=== PATIENT | female | born 2000 | race Two or more races ===

== ENCOUNTER 2021-06-07 22:15 | Emergency (ER) | payer OTHER, SELFPAY ==
--- NOTE | ~2021-06-07 | XR_ITS ---
EXAMINATION: XR ANKLE, LEFT CLINICAL INFORMATION: Fall down 2 steps COMPARISON: Left ankle radiographs 08/24/2018 TECHNIQUE: AP, lateral, and mortise views of the left ankle. FINDINGS: Aside from lateral soft tissue swelling, the bones and soft tissues are normal. No fracture. Alignment is anatomic. Joint spaces are maintained. No joint effusion. XR/XR ankle LT 2V IMPRESSION: Lateral soft tissue swelling without fracture.
[2021-06-07 22:42] VITALS: BP 143/88; PULSE 90; RESP 16; TEMP 37.3; O2SAT 97; BMI 29.2
[2021-06-08 00:04] VITALS: BP 138/88; PULSE 74; RESP 14; TEMP 36.6; O2SAT 98
--- NOTE | 2021-06-08 00:35 | ED.LOWEXIN ---
HPI - Extremity Injury (Lower) General Chief Complaint: Extremity Injury, Lower Stated Complaint: fall Time Seen by Provider: 06/08/21 00:34 Source: patient Mode of arrival: ambulatory Limitations: no limitations History of Present Illness HPI Narrative: 20-year-old female came in for evaluation of left ankle injury. Patient was going downstairs missed 2 steps of stairs and twisted his left ankle, fell down, no head injury, no neck injury. Complaining of left ankle pain and swelling. Related Data Allergies Allergy/AdvReac Type Severity Reaction Status Date / Time peanut Allergy Severe Difficulty Verified 06/08/21 00:12 Breathing Peanut Butter Allergy Severe Difficulty Verified 06/08/21 00:12 Breathing Review of Systems Review of Systems: All other systems are reviewed and are negative Constitutional: Reports as per HPI and Reports no additional constitutional complaints Eyes: Reports as per HPI and Reports no additional eye complaints Reports system reviewed and no additional complaints, except as documented Cardiovascular: Reports as per HPI and Reports no additional cardiovascular complaints Respiratory: Reports as per HPI and Reports no additional respiratory complaints Gastrointestinal: Reports as per HPI and Reports no additional gastrointestinal complaints Genitourinary: Reports no additional female genitourinary complaints Musculoskeletal: Reports no additional musculoskeletal complaints Skin/Breast: Reports system reviewed and no additional complaints, except as docu Psychiatric: Reports no additional psychiatric complaints Endocrine: Reports no additional endocrine complaints Hematologic/Lymphatic: Reports no additional hematologic/lymphatic complaints Allergic/Immunologic: Reports no additional allergic/immunologic complaints Reports system reviewed and no additional complaints, except as documented and Reports Abnormal speech present [facility] Past Medical History Medical History Asthma Social History Social History Advance Directives: No Advance Directives Information Provided: No Patient : No Physical Exam Vital Signs: Vital Signs: Last Vital Signs Temp 97.8 F 06/08/21 00:04 Pulse 74 06/08/21 00:04 Resp 14 06/08/21 00:04 BP 138/88 06/08/21 00:04 Pulse Ox 98 06/08/21 00:04 Body Mass Index 29.2 Vital signs have been reviewed as appeared to be correct. Blood pressure normal. Heart rate normal. Respiration rate normal. Temperature normal. Oxygen saturation normal. Appearance: Alert. Oriented X3. No acute distress. Head: Normal external exam. Normocephalic. Atraumatic. No Day signs noted. No raccoon eyes noted Eyes: PERRLA. EOMI. Conjunctiva and sclera normal. Eyelids normal. ENT: TM's Normal. Pharynx normal. Uvula midline. Moist mucous membranes. No trismus noted. No drooling noted. No muffled voice noted. Neck: Normal inspection. Neck supple. FROM. No adenopathy. Thyroid Normal. No meningeal signs. No neck mass noted. CVS: Normal heart rate and rhythm. Heart sound normal. No murmurs noted. Pulses normal throughout. Respiratory: No respiratory distress. Painless inspiration. Breath sounds normal. No wheezes/rales/rhonchi noted. Chest nontender. No accessory muscle usage noted or decreased air movement noted. Abdomen: Soft and nontender. Bowel sounds normal in all 4 quadrants. No distention noted. No organomegaly noted. No visible injury noted. Back: No CVA tenderness. Full range of motion noted. Skin: Skin warm and dry. Normal skin color. Normal skin turgor. No rashes/lesions/lacerations noted. Extremities: Left ankle exam: Swelling and edema over the lateral malleolus, no deformity, no step-off. Neuro: Oriented X 3. No motor deficit. No sensory deficit. Reflexes normal. Course Course Course Narrative: Left ankle contusion. Ice/Pedro wrap, elevation, NSAIDs. MDM - Extremity Injury (Lower) Imaging Data Left ankle x-ray: Radiologist's impression: Lateral soft tissue swelling without fracture. Discharge Plan Discharge Clinical Impression: Ankle sprain and strain Patient Disposition: Home, Self-Care Instructions: Foot Contusion (ED) Referrals: Soheila Garces MD [Primary Care Provider] - 2 days Stand Alone Forms: Work/School Release
[2021-06-08] MEDS: Ibuprofen 400 MG TABLET PO (00:48)
== END 2021-06-08 01:04 | disposition home or self-care (01) ==
PROVIDERS: Emergency Provider Emergency Medicine; PCP Pediatrics
DX: S93.402A Sprain of unspecified ligament of left ankle, initial encounter (principal); S96.912A Strain of unspecified muscle and tendon at ankle and foot level, left foot, initial encounter; W10.8XXA Fall (on) (from) other stairs and steps, initial encounter; Y93.89 Activity, other specified; Y92.018 Other place in single-family (private) house as the place of occurrence of the external cause; Y99.9 Unspecified external cause status
CPT/HCPCS: 73600; 99283; 99284

== ENCOUNTER 2021-08-03 15:22 | Emergency (ER) | payer OTHER, SELFPAY ==
[2021-08-03 15:36] VITALS: BP 114/73; PULSE 85; RESP 16; TEMP 36.6; O2SAT 90; BMI 28.2
--- NOTE | 2021-08-03 17:05 | ECG_ITS ---
Test Reason : HEADACHE Blood Pressure : / mmHG Vent. Rate : 067 BPM Atrial Rate : 067 BPM P-R Int : 140 ms QRS Dur : 098 ms QT Int : 390 ms P-R-T Axes : 042 055 059 degrees QTc Int : 412 ms Normal sinus rhythm with sinus arrhythmia Normal ECG No previous ECGs available Referred By: Taco Sutherland Electronically Signed By:NADIYA CLARKE
--- NOTE | 2021-08-03 17:07 | ED_ITS ---
HPI - General Adult General Chief complaint: Headache Stated complaint: headache Time Seen by Provider: 08/03/21 17:05 Source: patient Limitations: no limitations History of Present Illness HPI narrative: This is a 20-year-old female who complains of an intermittent headache for the last few days, with some associated episodes of feeling d ann marie/lightheaded. She denies any vertigo. She says her headache is resolved now. She also complains of her hair seems to be falling out more. She notes she did see her primary care physician about this but she did not have a good explanation. Patient denies feeling like she is cold all the time, though she says she has had this in the past. She notes she had been on Depakote x1 shot and was to have a 2nd injection around the end of April but stopped the Depakote and has resumed normal menstrual period. She wears of the hormonal change causing her symptoms. She denies any visual changes. She denies nausea or vomiting. She denies any chest pain, shortness of breath, abdominal pain. She denies any cough or sore throat. Related Data Allergies Allergy/AdvReac Type Severity Reaction Status Date / Time peanut Allergy Severe Difficulty Verified 06/08/21 00:12 Breathing Peanut Butter Allergy Severe Difficulty Verified 06/08/21 00:12 Breathing Review of Systems 2 Review of Systems: Yes all other systems are reviewed and are negative Constitutional: Constitutional: Denies fever(s) Eyes: Eyes: Reports no additional eye complaints ENT: Reports as per HPI Cardiovascular: Cardiovascular: Reports no additional cardiovascular complaints Respiratory: Respiratory: Reports no additional respiratory complaints Gastrointestinal: Gastrointestinal: Reports no additional gastrointestinal complaints Musculoskeletal: Musculoskeletal: Reports no additional musculoskeletal complaints Neurologic: Reports as per HPI and Denies Sensory deficit (Neuro) [facility] Past Medical History Medical History Asthma Social History Social History Advance Directives: No Advance Directives Information Provided: No Physical Exam Vital Signs: Vital Signs: Last Vital Signs Temp 97.3 F 08/03/21 17:39 Pulse 74 08/03/21 17:39 Resp 20 08/03/21 17:39 BP 129/86 08/03/21 17:39 Pulse Ox 98 08/03/21 17:39 Body Mass Index 28.2 Const: Other: Patient mildly anxious appearing General: cooperative, no acute distress and alert Orientation/consciousness: patient oriented x3 HENMT: Head: Yes normal to inspection Eyes: General: appearance normal, both eyes and all related structures Eyelids: Yes eyelids normal Conjunctivae: conjunctivae normal Pupils: Equal, round and reactive pupils present Neck: Neck: Yes normal visual inspection, Yes supple and No lymphadenopathy Thyroid: Thyroid normal Chest: Chest palpation & inspection: normal inspection of the chest Resp: Effort & Inspection: normal respiratory effort Auscultation: clear to auscultation bilaterally Cardio: Rate: regular rate Rhythm: regular rhythm Heart sounds: S1 normal heart sound present, S2 normal heart sound present, no gallops, no murmurs and no rubs GI: Palpation (GI): Soft to palpation, nontender and Other GI palpation findings present (Non-distended) Auscultation: normal bowel sounds Skin: General skin exam: no rashes or lesions noted Neuro: General: patient oriented x3, no focal motor deficits and CN's II-XI intact bilaterally Cranial nerves: Yes Equal, round and reactive pupils present Cognition (Neuro): normal cognition Motor exam (neuro): 5/5 motor strength present throughout Sensory Exam: No Sensory deficit (Neuro) Extrem: General: Yes normal to inspection and Yes no pedal edema Psych: Appearance: grossly normal Affect: normal affect Medical Decision Making MDM Narrative Medical decision making narrative: Patient with multiple complaints, appears mil dly anxious,, not ill appearing. Patient complained of headache and lightheaded, episodic. EKG normal. CBC normal with no evidence of anemia. Patient is not . Patient reported increased hair loss-TSH normal. Patient is safe for outpatient follow-up with PCP Lab Data Lab results reviewed: Yes I reviewed the patient's lab results. Result diagrams: 08/03/21 17:21 08/03/21 17:21 Labs: Lab Results 08/03/21 08/03/21 08/03/21 Range/Units 17:21 17:21 18:22 WBC 10.2 (4.8-10.8) X10*3/uL RBC 4.49 (4.20-5.50) X10*6/uL Hgb 12.6 (12.0-16.0) g/dl Hct 39.3 (37-47) % MCV 87.5 (80-98) fL MCH 28.1 (27.0-33.0) pg MCHC 32.1 (31.0-35.0) g/dl RDW 13.2 (11.0-16.0) % Plt Count 535 H (160-400) X10*3/uL MPV 8.3 L (9.4-12.3) fL Immature Gran % (Auto) 0.3 (0.0-0.4) % Neut % (Auto) 50.6 (45-73) % Lymph % (Auto) 35.7 (20-40) % [place] % (Auto) 6.9 (2-11) % Eos % (Auto) 5.9 H (0-4) % Baso % (Auto) 0.6 (0-2) % Lymph # (Auto) 3.6 (1.2-4.9) X10*3/uL [place] # (Auto) 0.7 (0.1-1.2) X10*3/uL Eos # (Auto) 0.6 H (0.0-0.4) X10*3/uL Baso # (Auto) 0.1 (0.0-0.2) X10*3/uL Abs Immat Gran (auto) 0.03 (0.00-0.03) X10*3/uL Absolute Neuts (auto) 5.2 (2.0-8.3) X10*3/uL Absolute Nucleated RBC 0.000 (0.0-0.012) X10*3/uL Nucleated RBC % (auto) 0.0 (0.0-0.2) /100WBC Sodium 138 (135-145) mmol/L Potassium 4.2 (3.3-5.1) mmol/L Chloride 106 (96-108) mmol/L Carbon Dioxide 26 (22-29) mmol/L Anion Gap 10 L (12-20) BUN 9 (9-16) mg/dL Creatinine 0.72 (0.5-1.4) mg/dL Estim Creat Clear Calc 96.5 Estimated GFR > 60 Random Glucose 91 (60-115) mg/dL Calcium 9.4 (8.4-10.2) mg/dL TSH 1.78 (0.32-4.0) uIU/mL Urine Test NEGATIVE (NEGATIVE) ECG Data Attestation: I personally reviewed and interpreted this ECG as follows: Interpretation: Sinus rhythm with a rate of 67. No ST elevation or depression. Normal QRS axis. No ectopy. Discharge Plan Discharge Clinical Impression: Headache, Dizziness Patient Disposition: Home, Self-Care Instructions: Dizziness (ED), General Headache (ED) Additional Instructions: Use Tylenol or ibuprofen for headache. Drink plenty of fluids. Take a multivitamin with iron. Follow up with her primary care physician as needed. Discharge Date/Time: 08/03/21 18:54
[2021-08-03 17:25] LABS: MANUAL DIFF FLAG NO
[2021-08-03 17:32] LABS: Basophils Absolute Auto 0.1 X10*3/uL (0.0-0.2); Basophils Percent Auto 0.6 % (0-2); Eosinophils Absolute Auto 0.6 X10*3/uL (0.0-0.4); Eosinophils Percent Auto 5.9 % (0-4); Hematocrit 39.3 % (37-47); Hemoglobin 12.6 g/dl (12.0-16.0); Imm Gran Abs Auto 0.03 X10*3/uL (0.00-0.03); Imm Gran Pct Auto 0.3 % (0.0-0.4); Lymphocytes Absolute Auto 3.6 X10*3/uL (1.2-4.9); Lymphocytes Percent Auto 35.7 % (20-40); Mean Corpuscular HGB Conc 32.1 g/dl (31.0-35.0); Mean Corpuscular Hemoglobin 28.1 pg (27.0-33.0); Mean Corpuscular Volume 87.5 fL (80-98); Mean Platelet Volume 8.3 fL (9.4-12.3); Monocytes Absolute Auto 0.7 X10*3/uL (0.1-1.2); Monocytes Percent Auto 6.9 % (2-11); Neutrophils Absolute Auto 5.2 X10*3/uL (2.0-8.3); Neutrophils Percent Auto 50.6 % (45-73); Platelet Count 535 X10*3/uL (160-400); Red Blood Count 4.49 X10*6/uL (4.20-5.50); Red Cell Distribution Width 13.2 % (11.0-16.0); White Blood Count 10.2 X10*3/uL (4.8-10.8)
[2021-08-03 17:39] VITALS: BP 129/86; PULSE 74; RESP 20; TEMP 36.3; O2SAT 98
[2021-08-03 17:51] LABS: Anion Gap 10 (12-20); Blood Urea Nitrogen 9 mg/dL (9-16); Calcium 9.4 mg/dL (8.4-10.2); Carbon Dioxide 26 mmol/L (22-29); Chloride 106 mmol/L (96-108); Creatinine Clr Calc Pharmacy 96.5; Estimated Glomerular Filt Rate > 60; Glucose Random 91 mg/dL (60-115); Potassium 4.2 mmol/L (3.3-5.1); Sodium 138 mmol/L (135-145)
[2021-08-03 18:14] LABS: TSH reflex Free T4 1.78 uIU/mL (0.32-4.0)
[2021-08-03 18:31] LABS: UPreg QC Valid YES; Urine Pregnancy NEGATIVE (NEGATIVE)
== END 2021-08-03 18:54 | disposition home or self-care (01) ==
PROVIDERS: Emergency Provider Emergency Medicine; PCP Pediatrics
DX: R51.9 Headache, unspecified (principal); R42 Dizziness and giddiness; Z79.899 Other long term (current) drug therapy
CPT/HCPCS: 36415; 80048; 81025; 84443; 85025; 93005; 99283; 99284

== ENCOUNTER 2021-11-17 08:46 | Outpatient (REF) | payer OTHER, SELFPAY ==
[2021-11-18 14:20] LABS: BV Int Neg Control Negative (Negative); BV Int Pos Control Positive (Positive)
[2021-11-18 14:24] LABS: CT PCR NOT DETECTED (Not Detect.); NG PCR NOT DETECTED (Not Detect.)
== END 2021-11-17 08:47 | disposition home or self-care (01) ==
LOC: HO.LAB 08:46
PROVIDERS: PCP Pediatrics; Visit Provider Advanced Practice Midwife
DX: Z30.09 Encounter for other general counseling and advice on contraception (principal); Z20.2 Contact with and (suspected) exposure to infections with a predominantly sexual mode of transmission
CPT/HCPCS: 87480; 87491; 87510; 87591; 87660

== ENCOUNTER 2021-11-22 14:46 | Outpatient (REF) | payer OTHER, SELFPAY ==
[2021-11-22 15:40] LABS: COVID-19 Test Negative (Negative); IDNOW Serial# 16C4AD1C
== END 2021-11-22 14:47 | disposition home or self-care (01) ==
LOC: HO.LAB 14:46
PROVIDERS: Visit Provider Internal Medicine
DX: Z20.822 Contact with and (suspected) exposure to COVID-19 (principal)
CPT/HCPCS: 87635; C9803

== ENCOUNTER 2021-12-09 11:31 | Outpatient (REF) | payer OTHER, SELFPAY ==
[2021-12-09 11:51] LABS: COVID-19 Test Negative (Negative)
== END 2021-12-09 11:32 | disposition home or self-care (01) ==
LOC: HO.LAB 11:31
PROVIDERS: Visit Provider Internal Medicine
DX: Z20.822 Contact with and (suspected) exposure to COVID-19 (principal)
CPT/HCPCS: 87635; C9803

== ENCOUNTER 2021-12-12 08:57 | Outpatient (REF) | payer OTHER, SELFPAY ==
[2021-12-13 07:40] LABS: COVID-19 Test Negative (Negative); IDNOW Serial# 16C4AD1C
== END 2021-12-12 08:58 | disposition home or self-care (01) ==
LOC: HO.LAB 08:57
PROVIDERS: Visit Provider Internal Medicine
DX: Z20.822 Contact with and (suspected) exposure to COVID-19 (principal)
CPT/HCPCS: 87635; C9803

== ENCOUNTER 2023-02-13 05:46 | Emergency (ER) | payer OTHER, SELFPAY ==
--- NOTE | ~2023-02-13 | US_ITS ---
EXAMINATION: US OBSTETRICAL ULTRASOUND CLINICAL INFORMATION: Pelvic pain and COMPARISON: None available.. LMP: 01/17/2023. Gestational age by maternal dates is 5 weeks 2 days. Estimated date of delivery by maternal dates is 10/14/2023. TECHNIQUE: Transabdominal and transvaginal first trimester OB ultrasound. Transvaginal exam was performed for better visualization of the gestational sac and ovaries. FINDINGS: There is an intrauterine gestational sac and yolk sac. Mean sac diameter measures 0.6 cm which would suggest gestational age of 5 weeks 1 day. No pole seen. There is a second small cyst in the endometrium measuring 3 x 3 x 2 mm. MATERNAL ADNEXA: The right maternal ovary measures 2.8 x 1 x 1.4 cm. The left maternal ovary measures 3.3 x 1.7 x 1.7 cm. 1.5 x 1.4 x 1.3 cm cyst. There is no significant maternal adnexal mass. No maternal pelvic ascites. US/US OB pelvic and transvaginal IMPRESSION: Intrauterine gestational sac and yolk sac. Mean sac diameter suggests gestational age of 5 weeks 1 day. Small adjacent endometrial cyst measuring 3 x 3 x 2 mm.
[2023-02-13 06:17] VITALS: BP 130/95; PULSE 89; RESP 18; TEMP 36.9; O2SAT 98; BMI 27.1
--- NOTE | 2023-02-13 06:32 | PC.NURSE ---
Pt A&Ox4, reports / intermittent all over ABD pain, states it feels like cramping. Reports LMP 01/07/2023, and took 4 home tests that were positive. Pt tearful, anxious with unsuccessful blood draw, states I had a bad experience with blood draws, I can't do this, I don't want to blood work drawn after multiple reassuring attempts continued to refuse.
--- NOTE | 2023-02-13 06:32 | MHC.EDTECH ---
pt refused blood draw due to she is scared from a previous draw
--- NOTE | 2023-02-13 07:25 | ED.ABDPAIN ---
HPI - Abdominal Pain General Chief Complaint: Abdominal Pain Stated Complaint: Abdominal Pain/ Possibly ? Time Seen by Provider: 02/13/23 07:24 Source: patient Mode of arrival: ambulatory Limitations: no limitations History of Present Illness HPI narrative: Patient took a Plan B on January 22, now with cramping, test was positive at home. LMP 3/5. No vaginal bleeding non discharge MD elicited complaint: abdominal pain Onset (ago): day(s) Pain Consistency: intermittent Location: RLQ, LLQ and suprapubic Severity: mild Quality: cramping Related Data Home Medications Medication Instructions Recorded Confirmed albuterol 90 mcg/actuation aerosol mcg inhalation 11/17/21 11/17/21 inhaler fluticasone 250 mcg-salmeterol 50 1 inh inhalation BID 11/17/21 11/17/21 mcg/dose blistr powdr for inhalation (Advair Diskus) Previous Rx's Medication Instructions Recorded levonorgestrel-ethinyl estradiol 1 tab PO DAILY #84 tabs 11/17/21 0.1 mg-20 mcg tablet Allergies Allergy/AdvReac Type Severity Reaction Status Date / Time peanut Allergy Severe Difficulty Verified 11/17/21 08:50 Breathing Peanut Butter Allergy Severe Difficulty Verified 11/17/21 08:50 Breathing Review of Systems Review of Systems Yes all other systems are reviewed and are negative Comments: abdominal cramping PMFSH Past Medical History Medical History Asthma Social History Social History Alcohol intake: current Alcohol intake frequency: holidays/special occasions only Patient Tobacco Use Status: Never used Tobacco Smoked in Last 30 Days: No Use of substances other than those prescribed or required for medical reasons: No Advance Directives: No Advance Directives Information Provided: No Gender identity: Female Physical Exam ED Vital Signs: Vital Signs - 24 hr 02/13/23 06:17 02/13/23 07:28 02/13/23 09:07 Temperature 98.5 F 97.9 F 98.3 F Pulse Rate 89 77 82 Respiratory Rate 18 20 14 Blood Pressure 130/95 H 129/82 124/73 Pulse Oximetry 98 99 96 Oxygen Delivery Method Room Air Room Air Room Air BMI result Body Mass Index 27.1 Const General: healthy appearing Nutritional Appearance: average body habitus Orientation/consciousness: oriented to person and patient oriented x3 Limitations: no limitations HENMT Head: Yes normal to inspection Ears: external ears normal General nose exam: Normal external nose present Mouth: Normal oral and palatal mucosa present and oropharynx normal Throat: Yes posterior oropharynx normal Eyes General: appearance normal, both eyes and all related structures Neck Neck: Yes normal visual inspection Chest Chest palpation & inspection: normal inspection of the chest Resp Auscultation: clear to auscultation bilaterally Cardio Jugular venous distension: no JVD Rate: regular rate Rhythm: regular rhythm Heart sounds: S1 normal heart sound present and S2 normal heart sound present GI Inspection: Yes normal to inspection Palpation (GI): Soft to palpation, nontender and No hepatosplenomegaly present Auscultation: normal bowel sounds General: Yes no CVA tenderness Back/Spine/Pelvis Back: no CVA tenderness Skin General skin exam: no rashes or lesions noted Neuro General: oriented to person and patient oriented x3 Cranial nerves: Yes CN's II-XII intact bilaterally Motor exam (neuro): 5/5 motor strength present throughout Extrem General: Yes normal to inspection Psych Appearance: grossly normal Course Reevaluation(s) Reevaluation #1: Patient with IUP and yolk sac [facility] Time: 10:51 Medical Decision Making Differential Diagnosis Differential Diagnoses: The differential diagnosis associated with the presentation includes (ectopic , incomplete , IUP) Consult Healthcare Provider Management of the patient was discussed with: Him Analyst (Dr. Glass flat sorter processor) Lab Data MDM Lab Attestation statement: I reviewed the patient's lab results. 02/13/23 07:27 02/13/23 07:27 Labs: Lab Results 02/13/23 02/13/23 02/13/23 Range/Units 07:27 07:27 08:12 WBC 9.1 (4.8-10.8) X10*3/uL RBC 4.89 (4.20-5.50) X10*6/uL Hgb 14.4 (12.0-16.0) g/dl Hct 42.4 (37.0-47.0) % MCV 86.7 (80.0-98.0) fL MCH 29.4 (27.0-33.0) pg MCHC 34.0 (31.0-35.0) g/dl RDW 13.0 (11.0-16.0) % Plt Count 466 H (160-400) X10*3/uL MPV 8.5 L (9.4-12.3) fL Immature Gran % (Auto) 0.2 (0.0-0.4) % Neut % (Auto) 51.7 (45-73) % Lymph % (Auto) 34.6 (20-40) % [place] % (Auto) 7.8 (2-11) % Eos % (Auto) 4.9 H (0-4) % Baso % (Auto) 0.8 (0-2) % Lymph # (Auto) 3.2 (1.2-4.9) X10*3/uL [place] # (Auto) 0.7 (0.1-1.2) X10*3/uL Eos # (Auto) 0.5 H (0.0-0.4) X10*3/uL Baso # (Auto) 0.1 (0.0-0.2) X10*3/uL Abs Immat Gran (auto) 0.02 (0.00-0.03) X10*3/uL Absolute Neuts (auto) 4.7 (2.0-8.3) x10*3/uL Absolute Nucleated RBC 0.000 (0.0-0.012) X10*3/uL Nucleated RBC % (auto) 0.0 (0.0-0.2) /100WBC Sodium 137 (135-145) mmol/L Potassium 3.3 D (3.3-5.1) mmol/L Chloride 107 (96-108) mmol/L Carbon Dioxide 20 L (22-29) mmol/L Anion Gap 13 (12-20) BUN 9 (9-16) mg/dL Creatinine 0.71 (0.5-1.4) mg/dL Estim Creat Clear Calc 94.4 Estimated GFR > 60 Random Glucose 78 (60-115) mg/dL Calcium 9.2 (8.4-10.2) mg/dL Total Bilirubin 0.9 (0.0-1.0) mg/dL AST 17 (5-31) U/L ALT 17 (0-31) U/L Alkaline Phosphatase 66 (39-117) U/L Total Protein 7.0 (6.5-8.0) g/dL Albumin 4.2 (3.5-5.0) g/dL Beta HCG, Quant 6558 mIU/mL Urine Color Yellow Urine Appearance Clear Urine pH 6.5 (5.0-9.0) Ur Specific [place] 1.015 (1.005-1.025) Urine Protein Negative (Neg-Trace) mg/dL Urine Glucose (UA) Negative (Negative) mg/dL Urine Ketones 15 (Negative) mg/dL Urine Blood Negative (Negative) Urine Nitrite Negative (Negative) Ur Leukocyte Esterase Negative (Negative) Urine Test (NEGATIVE) 02/13/23 Range/Units 08:12 WBC (4.8-10.8) X10*3/uL RBC (4.20-5.50) X10*6/uL Hgb (12.0-16.0) g/dl Hct (37.0-47.0) % MCV (80.0-98.0) fL MCH (27.0-33.0) pg MCHC (31.0-35.0) g/dl RDW (11.0-16.0) % Plt Count (160-400) X10*3/uL MPV (9.4-12.3) fL Immature Gran % (Auto) (0.0-0.4) % Neut % (Auto) (45-73) % Lymph % (Auto) (20-40) % [place] % (Auto) (2-11) % Eos % (Auto) (0-4) % Baso % (Auto) (0-2) % Lymph # (Auto) (1.2-4.9) X10*3/uL [place] # (Auto) (0.1-1.2) X10*3/uL Eos # (Auto) (0.0-0.4) X10*3/uL Baso # (Auto) (0.0-0.2) X10*3/uL Abs Immat Gran (auto) (0.00-0.03) X10*3/uL Absolute Neuts (auto) (2.0-8.3) x10*3/uL Absolute Nucleated RBC (0.0-0.012) X10*3/uL Nucleated RBC % (auto) (0.0-0.2) /100WBC Sodium (135-145) mmol/L Potassium (3.3-5.1) mmol/L Chloride (96-108) mmol/L Carbon Dioxide (22-29) mmol/L Anion Gap (12-20) BUN (9-16) mg/dL Creatinine (0.5-1.4) mg/dL Estim Creat Clear Calc Estimated GFR Random Glucose (60-115) mg/dL Calcium (8.4-10.2) mg/dL Total Bilirubin (0.0-1.0) mg/dL AST (5-31) U/L ALT (0-31) U/L Alkaline Phosphatase (39-117) U/L Total Protein (6.5-8.0) g/dL Albumin (3.5-5.0) g/dL Beta HCG, Quant mIU/mL Urine Color Urine Appearance Urine pH (5.0-9.0) Ur Specific [place] (1.005-1.025) Urine Protein (Neg-Trace) mg/dL Urine Glucose (UA) (Negative) mg/dL Urine Ketones (Negative) mg/dL Urine Blood (Negative) Urine Nitrite (Negative) Ur Leukocyte Esterase (Negative) Urine Test POSITIVE H (NEGATIVE) Independent Interpretation I performed an independent interpretation of an: Ultrasound (IUP) Radiology Impression Discussion of test interpretation with radiology: I have reviewed the radiologist's reading. Discharge Plan Discharge Clinical Impression: Intrauterine Patient Disposition: Home, Self-Care Instructions: (ED) Additional Inst[facility] Prescriptions: No Action fluticasone propion-salmeterol [Advair Diskus] 250-50 mcg/dose blister with device 1 inh inhalation BID albuterol 90 mcg/actuation aerosol inhalation levonorgestrel-ethinyl estrad 0.1-20 mg-mcg tablet 1 tab PO DAILY Qty: 84 3RF Referrals: Physician,Unknown J [Primary Care Provider] - 3 days ([facility])
[2023-02-13 07:28] VITALS: BP 129/82; PULSE 77; RESP 20; TEMP 36.6; O2SAT 99
[2023-02-13 07:30] LABS: MANUAL DIFF FLAG NO
[2023-02-13 07:35] LABS: Basophils Absolute Auto 0.1 X10*3/uL (0.0-0.2); Basophils Percent Auto 0.8 % (0-2); Eosinophils Absolute Auto 0.5 X10*3/uL (0.0-0.4); Eosinophils Percent Auto 4.9 % (0-4); Hematocrit 42.4 % (37.0-47.0); Hemoglobin 14.4 g/dl (12.0-16.0); Imm Gran Abs Auto 0.02 X10*3/uL (0.00-0.03); Imm Gran Pct Auto 0.2 % (0.0-0.4); Lymphocytes Absolute Auto 3.2 X10*3/uL (1.2-4.9); Lymphocytes Percent Auto 34.6 % (20-40); Mean Corpuscular Hemoglobin 29.4 pg (27.0-33.0); Mean Corpuscular Volume 86.7 fL (80.0-98.0); Mean Platelet Volume 8.5 fL (9.4-12.3); Monocytes Absolute Auto 0.7 X10*3/uL (0.1-1.2); Monocytes Percent Auto 7.8 % (2-11); Neutrophils Absolute Auto 4.7 x10*3/uL (2.0-8.3); Neutrophils Percent Auto 51.7 % (45-73); Platelet Count 466 X10*3/uL (160-400); Red Blood Count 4.89 X10*6/uL (4.20-5.50); White Blood Count 9.1 X10*3/uL (4.8-10.8)
[2023-02-13 07:55] LABS: Alanine Aminotransferase 17 U/L (0-31); Albumin Level 4.2 g/dL (3.5-5.0); Alkaline Phosphatase 66 U/L (39-117); Anion Gap 13 (12-20); Aspartate Amino Transferase 17 U/L (5-31); Bilirubin Total 0.9 mg/dL (0.0-1.0); Blood Urea Nitrogen 9 mg/dL (9-16); Calcium 9.2 mg/dL (8.4-10.2); Carbon Dioxide 20 mmol/L (22-29); Chloride 107 mmol/L (96-108); Creatinine Clr Calc Pharmacy 94.4; Estimated Glomerular Filt Rate > 60; Glucose Random 78 mg/dL (60-115); HCG Quantitative 6558 mIU/mL; Potassium 3.3 mmol/L (3.3-5.1); Sodium 137 mmol/L (135-145)
--- NOTE | 2023-02-13 08:19 | PC.NURSE ---
Pt found on stretcher, airway open and patent, no obvious signs of distress, no difficulty breathing. A&ox4, skin pink, warm, and dry. Pt lung sounds clr and equal bilaterally. Heart sounds normal. Bowel sounds present all diez, abdomen soft, pt denies tenderness upon palpation. No edema noted. Pt complaining of abdominal cramping throughout abdomen, rated 3/10 pain. Pt reports positive preg test at home x4. Pt reports taking plan B on 01/22/23.
[2023-02-13 08:23] LABS: Appearance Urine Clear; Color Urine Yellow; Glucose Urine UA Negative (Negative); Leukocyte Esterase Urine Negative (Negative); Nitrite Urine Negative (Negative); PH 6.5 (5.0-9.0); Specific Gravity - Urine 1.015 (1.005-1.025); Urine Blood Negative (Negative); Urine Ketones 15 mg/dL (Negative); Urine Protein Negative (Neg-Trace)
[2023-02-13 08:24] LABS: UPreg QC Valid YES; Urine Pregnancy POSITIVE (NEGATIVE)
[2023-02-13 09:07] VITALS: BP 124/73; PULSE 82; RESP 14; TEMP 36.8; O2SAT 96
--- NOTE | 2023-02-13 09:28 | PC.NURSE ---
pt of the [facility] for [facility]
--- NOTE | 2023-02-13 10:41 | P.CONOB_ITS ---
BRANCH CUSTOMER SERVICE REPRESENTATIVE - CN: HPI Data of Consult Consult date: 02/13/23 Primary Care Provider: Unknown Physician Consult Narrative Narrative: I was consulted on Iva Pearson who is a 22 year old female presenting to the emergency room complaining of pelvic cramping, the patient had a positive urine test done at home. Last menstrual cycles was and making her by today at 7 weeks and 1 day of gestation. The patient had unprotected intercourse, after which she took a Plan B on 01/22/2023;? No vaginal bleeding , or discharge, no associated other urinary or GI complaints. HCG= 6558 Pelvic ultrasound showed the following: There is an intrauterine gestational sac and yolk sac. Mean sac diameter measures 0.6 cm which would suggest gestational age of 5 weeks 1 day. No pole seen. There is a second small cyst in the endometrium measuring 3 x 3 x 2 mm. MATERNAL ADNEXA: ? ? The right maternal ovary measures 2.8 x 1 x 1.4 cm. The left maternal ovary measures 3.3 x 1.7 x 1.7 cm.? 1.5 x 1.4 x 1.3 cm cyst. There is no significant maternal adnexal mass.? No maternal pelvic ascites. cc:: CC: OB [facility] Past Medical History Medical History Asthma Social History Social History Alcohol intake: current Alcohol intake frequency: holidays/special occasions only Patient Tobacco Use Status: Never used Tobacco Smoked in Last 30 Days: No Use of substances other than those prescribed or required for medical reasons: No Advance Directives: No Advance Directives Information Provided: No Gender identity: Female Meds Allergies Allergy/AdvReac Type Severity Reaction Status Date / Time peanut Allergy Severe Difficulty Verified 11/17/21 08:50 Breathing Peanut Butter Allergy Severe Difficulty Verified 11/17/21 08:50 Breathing Home Medications Medication Instructions Recorded Confirmed Last Taken Type albuterol 90 mcg/actuation aerosol mcg inhalation 11/17/21 11/17/21 Unknown History inhaler fluticasone 250 mcg-salmeterol 50 1 inh inhalation BID 11/17/21 11/17/21 Unknown History mcg/dose blistr powdr for inhalation (Advair Diskus) BRANCH CUSTOMER SERVICE REPRESENTATIVE Physical Exam Vitals Vital signs: Temp Pulse Resp BP Pulse Ox O2 Del Method 98.3 F 82 14 124/73 96 Room Air 02/13/23 09:07 02/13/23 09:07 02/13/23 09:07 02/13/23 09:07 02/13/23 09:07 02/13/23 09:07 BMI result Body Mass Index 27.1 Additional Comments: Reported by Dr. Cazares as the following: Abdominal exam soft, nontender no guarding or rebound BRANCH CUSTOMER SERVICE REPRESENTATIVE - Results Labs 02/13/23 07:27 02/13/23 07:27 Labs: Short CBC 02/13/23 Range/Units 07:27 WBC 9.1 (4.8-10.8) X10*3/uL Hgb 14.4 (12.0-16.0) g/dl Hct 42.4 (37.0-47.0) % Plt Count 466 H (160-400) X10*3/uL BMP 02/13/23 07:27 Sodium 137 Potassium 3.3 D Chloride 107 Carbon Dioxide 20 L BUN 9 Creatinine 0.71 Calcium 9.2 Liver Function 02/13/23 Range/Units 07:27 Total Bilirubin 0.9 (0.0-1.0) mg/dL AST 17 (5-31) U/L ALT 17 (0-31) U/L Alkaline Phosphatase 66 (39-117) U/L Albumin 4.2 (3.5-5.0) g/dL Urine 02/13/23 02/13/23 Range/Units 08:12 08:12 Urine Color Yellow Urine Appearance Clear Urine pH 6.5 (5.0-9.0) Ur Specific [place] 1.015 (1.005-1.025) Urine Protein Negative (Neg-Trace) mg/dL Urine Glucose (UA) Negative (Negative) mg/dL Urine Test POSITIVE H (NEGATIVE) Imaging US - abdomen: Radiologist's impression: ITS Impressions Pelvic/Transvag US 02/13/23 09:39 IMPRESSION: Intrauterine gestational sac and yolk sac. Mean sac diameter suggests gestational age of 5 weeks 1 day. Small adjacent endometrial cyst measuring 3 x 3 x 2 mm. Assessment and Plan (1) Intrauterine : Status: Acute Recommended the following to Dr. Cazares: If this is a desirable , SAB/ectopic warnings to be given to patient, she is to come back to the emergency in case of pelvic cramping and /or bleeding. vitamin 1 tablet p.o. q.d. and close follow-up with her inspector packer glass container with follow-up evaluation and ultrasound. If this is undesirable, [facility] . I spent a total of 20 minute reviewing the chart, communicating the emergency room provider and documenting in the medical record. This note was generated with a voice recognition program. Some errors may have been overlooked during the review of this note. Sometimes these errors may affect the content or meaning of a given sentence. Time Spent With Patient Time: Total time managing care of this patient today ____ minutes.
[2023-02-13 11:20] VITALS: BP 121/78; PULSE 83; RESP 18; O2SAT 99
== END 2023-02-13 11:21 | disposition home or self-care (01) ==
PROVIDERS: Emergency Provider Emergency Medicine
DX: R10.2 Pelvic and perineal pain (principal); R10.32 Left lower quadrant pain; R10.31 Right lower quadrant pain; Z79.899 Other long term (current) drug therapy
CPT/HCPCS: 36415; 76801; 76817; 80053; 81003; 81025; 84702; 85025; 99284

== ENCOUNTER 2023-04-17 14:12 | Emergency (ER) | payer OTHER, SELFPAY ==
--- NOTE | ~2023-04-17 | US_ITS ---
EXAMINATION: US OBSTETRICAL ULTRASOUND CLINICAL INFORMATION: Retained products of conception versus IUP. LMP unknown. COMPARISON: Pelvic ultrasound 02/13/2023. LMP: Unknown. TECHNIQUE: Ultrasound of the maternal pelvis is performed using transabdominal and transvaginal transducers. Transvaginal imaging is performed due to inadequate visualization transabdominally. M-mode Doppler is also performed. FINDINGS: The uterus is anteverted and measures 7.4 x 3.6 cm cervix to fundus by anteroposterior diameter. No evidence of intrauterine gestational sac. The endometrium is thickened, heterogeneous and with internal vascularity measuring up to 1.5 cm in thickness. Ovaries are normal in morphology with preserved flow at the moment of this examination. The right ovary measures 3.6 x 1.6 x 1.6 cm and the left ovary measures 3 x 1.8 x 2 cm. There is a 1.4 cm corpus luteal cyst in the left ovary. No adnexal mass. No free fluid. US/US OB <= 14 weeks fetus IMPRESSION: No evidence of intrauterine gestation. Thickened heterogeneous vascular endometrium, suggesting retained products of conception seen in the appropriate clinical setting. Recommend OB consultation and correlation with quantitative hCG.
[2023-04-17 15:06] VITALS: BP 126/76; PULSE 79; RESP 16; TEMP 36.7; O2SAT 98; BMI 27.2
--- NOTE | 2023-04-17 15:08 | ED.PREGNANCY ---
HPI - General Chief complaint: General Medical Stated complaint: ? Spotting Time Seen by Provider: 04/17/23 18:00 Source: patient, RN notes reviewed and old records reviewed Mode of arrival: ambulatory Limitations: no limitations History of Present Illness HPI Narrative: Patient is a 22-year-old female, presenting to the emergency department after taking a home test which was positive following a medically induced . Patient was seen here on 02/13 and found to have an intrauterine . She then had a medically induced at [facility] with methot[facility]ate on 02/22. Patient then had a negative home urine test on 03/30. After this time she had unprotected sex. She then took another urine home test which was positive. She went to her PCP where she had her HCG levels checked. The first was 13, then yesterday was 10. She reports spotting until one week ago, none since. She denies any fevers, abdominal pain, abnormal vaginal discharge. She does not currently have an ESTIMATOR AND DRAFTER SUPERVISOR but has an appointment to establish care in June. Complaint: other (positive test) Onset (ago): day(s) Associated symptoms: denies other symptoms Vaginal discharge: none Vaginal bleeding: none Date of Last Menstrual Period: 01/07/23 Hx Last Menstrual Period: Last regular period was 01/07 Related Data Home Medications Medication Instructions Recorded Confirmed albuterol 90 mcg/actuation aerosol mcg inhalation 11/17/21 11/17/21 inhaler fluticasone 250 mcg-salmeterol 50 1 inh inhalation BID 11/17/21 11/17/21 mcg/dose blistr powdr for inhalation (Advair Diskus) Previous Rx's Medication Instructions Recorded levonorgestrel-ethinyl estradiol 1 tab PO DAILY #84 tabs 11/17/21 0.1 mg-20 mcg tablet Allergies Allergy/AdvReac Type Severity Reaction Status Date / Time peanut Allergy Severe Difficulty Verified 04/17/23 15:06 Breathing Peanut Butter Allergy Severe Difficulty Verified 04/17/23 15:06 Breathing Review of Systems Review of Systems: As per HPI. Yes all other systems are reviewed and are negative Constitutional: Constitutional: Reports as per HPI PMFSH Past Medical History Medical History Asthma Date of Last Menstrual Period: 01/07/23 Hx Last Menstrual Period: Last regular period was 3/5 Social History Social History Alcohol intake: current Alcohol intake frequency: holidays/special occasions only Patient Tobacco Use Status: Never used Tobacco Gender identity: Female Physical Exam Vital Signs: Vital Signs: Last Vital Signs Temp 98.4 F 04/17/23 18:20 Pulse 70 04/17/23 18:20 Resp 16 04/17/23 18:20 BP 145/84 H 04/17/23 18:20 Pulse Ox 99 04/17/23 18:20 O2 Del Method Room Air 04/17/23 18:20 BMI result Body Mass Index 27.2 Vital signs have been reviewed and appear to be correct. Blood pressure mildly elevated. Heart rate normal. Respiratory rate normal. Temperature normal. Oxygen saturation normal. Const: General: cooperative, healthy appearing and no acute distress Orientation/consciousness: oriented to person, oriented to place, oriented to time and patient oriented x3 Limitations: no limitations HEENT: Head: Yes normocephalic and Yes atraumatic Ears: external ears normal General nose exam: Normal external nose present Face and sinus: Yes face symmetric Mouth: oropharynx normal and moist mucous membranes Throat: Yes uvula midline Eyes: Pupils: Equal, round and reactive pupils present Neck: Neck: Yes normal visual inspection and Yes supple Resp: Effort & Inspection: normal respiratory effort and able to speak in complete sentences Auscultation: clear to auscultation bilaterally Cardio: Rate: regular rate Rhythm: regular rhythm Heart sounds: S1 normal heart sound present and S2 normal heart sound present GI: Palpation (GI): Soft to palpation and nontender Auscultation: normoactive bowel sounds : General: Yes no CVA tenderness Back/Spine/Pelvis: Back: no CVA tenderness Skin: General skin exam: elasticity normal and turgor normal Neuro: General: oriented to person, oriented to place, oriented to time, patient oriented x3, moves all extremities, no focal motor deficits and CN's II-XI intact bilaterally Cranial nerves: Yes Equal, round and reactive pupils present Cognition (Neuro): normal cognition Extrem: General: Yes full ROM, Yes no pedal edema and Yes no calf tenderness Psych: Mental Status: mental status grossly normal Affect: normal affect Thought process: Normal thought process present Course Course Course Narrative: RME: 22yo F presenting to ED for labs due to possible . Patient states had positive on 02/13, was seen in our ED, [facility] . Subsequently had negative urine at home, however is now having positive urine test. Patient does admit to having unprotected intercourse between negative test and positive. Reports previously with spotting, denies any spotting, abdominal pain, nausea/vomiting at present Labs, UA ordered Full HPI, ROS and PE to be performed by primary ED provider. Medical Decision Making Medical Decision Making [facility] Narrative: Patient is a 22-year-old female, presenting to the emergency department after taking a home test which was positive following a medically induced . On exam patient is awake, A+Ox3, VS WNL, nontoxic appearing, abdomen soft and nontender, no CVA tenderness. HCG level draw in triage is 11 today. Ultrasound shows thickened heterogeneous vascular endometrium, suggesting retained products of conception. [place] text to Dr. Glass who advised repeat HCG level in 48 hours and incomplete return precautions. All results discussed with patient and all questions answered. Patient verbalized understanding of and agreement with plan. Patient to return if she develops fever, abdominal pain, bleeding, abnormal vaginal discharge. Differential Diagnosis Differential Diagnoses: The differential diagnosis associated with the presentation includes intrauterine , retained products of conception, incomplete Consult Healthcare Provider Management of the patient was discussed with: Bilingual Teacher Assistant (Dr. Glass) Lab Data [facility] Lab Attestation statement: I reviewed the patient's lab results. 04/17/23 15:20 04/17/23 15:20 Labs: Lab Results 04/17/23 04/17/23 04/17/23 Range/Units 15:20 15:20 15:20 WBC 9.0 (4.8-10.8) X10*3/uL RBC 4.83 (4.20-5.50) X10*6/uL Hgb 14.4 (12.0-16.0) g/dl Hct 43.5 (37.0-47.0) % MCV 90.1 (80.0-98.0) fL MCH 29.8 (27.0-33.0) pg MCHC 33.1 (31.0-35.0) g/dl RDW 12.4 (11.0-16.0) % Plt Count 546 H (160-400) X10*3/uL MPV 8.8 L (9.4-12.3) fL Immature Gran % (Auto) 0.2 (0.0-0.4) % Neut % (Auto) 50.0 (45-73) % Lymph % (Auto) 37.0 (20-40) % [place] % (Auto) 7.6 (2-11) % Eos % (Auto) 4.4 H (0-4) % Baso % (Auto) 0.8 (0-2) % Lymph # (Auto) 3.3 (1.2-4.9) X10*3/uL [place] # (Auto) 0.7 (0.1-1.2) X10*3/uL Eos # (Auto) 0.4 (0.0-0.4) X10*3/uL Baso # (Auto) 0.1 (0.0-0.2) X10*3/uL Abs Immat Gran (auto) 0.02 (0.00-0.03) X10*3/uL Absolute Neuts (auto) 4.5 (2.0-8.3) x10*3/uL Absolute Nucleated RBC 0.000 (0.0-0.012) X10*3/uL Nucleated RBC % (auto) 0.0 (0.0-0.2) /100WBC Sodium 140 (135-145) mmol/L Potassium 4.3 D (3.3-5.1) mmol/L Chloride 107 (96-108) mmol/L Carbon Dioxide 25 (22-29) mmol/L Anion Gap 12 (12-20) BUN 8 L (9-16) mg/dL Creatinine 0.74 (0.5-1.4) mg/dL Estim Creat Clear Calc 90.5 Estimated GFR > 60 Random Glucose 58 L* (60-115) mg/dL Calcium 9.9 D (8.4-10.2) mg/dL Total Bilirubin 0.5 (0.0-1.0) mg/dL Direct Bilirubin 0.2 (0.0-0.5) mg/dL AST 17 (5-31) U/L ALT 13 (0-31) U/L Alkaline Phosphatase 75 (39-117) U/L Total Protein 7.6 (6.5-8.0) g/dL Albumin 4.2 (3.5-5.0) g/dL Lipase 24 (8-78) U/L Beta HCG, Quant 11 mIU/mL Urine Color Urine Appearance Urine pH (5.0-9.0) Ur Specific [place] (1.005-1.025) Urine Protein (Neg-Trace) mg/dL Urine Glucose (UA) (Negative) mg/dL Urine Ketones (Negative) mg/dL Urine Blood (Negative) Urine Nitrite (Negative) Ur Leukocyte Esterase (Negative) Urine RBC (0-2) /HPF Urine WBC (0-5) /HPF Ur Squamous Epith Cells (0-2) /HPF Urine Bacteria (None Seen) Hyaline Casts (0-2) /LPF 04/17/23 Range/Units 16:45 WBC (4.8-10.8) X10*3/uL RBC (4.20-5.50) X10*6/uL Hgb (12.0-16.0) g/dl Hct (37.0-47.0) % MCV (80.0-98.0) fL MCH (27.0-33.0) pg MCHC (31.0-35.0) g/dl RDW (11.0-16.0) % Plt Count (160-400) X10*3/uL MPV (9.4-12.3) fL Immature Gran % (Auto) (0.0-0.4) % Neut % (Auto) (45-73) % Lymph % (Auto) (20-40) % [place] % (Auto) (2-11) % Eos % (Auto) (0-4) % Baso % (Auto) (0-2) % Lymph # (Auto) (1.2-4.9) X10*3/uL [place] # (Auto) (0.1-1.2) X10*3/uL Eos # (Auto) (0.0-0.4) X10*3/uL Baso # (Auto) (0.0-0.2) X10*3/uL Abs Immat Gran (auto) (0.00-0.03) X10*3/uL Absolute Neuts (auto) (2.0-8.3) x10*3/uL Absolute Nucleated RBC (0.0-0.012) X10*3/uL Nucleated RBC % (auto) (0.0-0.2) /100WBC Sodium (135-145) mmol/L Potassium (3.3-5.1) mmol/L Chloride (96-108) mmol/L Carbon Dioxide (22-29) mmol/L Anion Gap (12-20) BUN (9-16) mg/dL Creatinine (0.5-1.4) mg/dL Estim Creat Clear Calc Estimated GFR Random Glucose (60-115) mg/dL Calcium (8.4-10.2) mg/dL Total Bilirubin (0.0-1.0) mg/dL Direct Bilirubin (0.0-0.5) mg/dL AST (5-31) U/L ALT (0-31) U/L Alkaline Phosphatase (39-117) U/L Total Protein (6.5-8.0) g/dL Albumin (3.5-5.0) g/dL Lipase (8-78) U/L Beta HCG, Quant mIU/mL Urine Color Yellow Urine Appearance Cloudy Urine pH 7.0 (5.0-9.0) Ur Specific [place] 1.020 (1.005-1.025) Urine Protein Negative (Neg-Trace) mg/dL Urine Glucose (UA) Negative (Negative) mg/dL Urine Ketones Negative (Negative) mg/dL Urine Blood Negative (Negative) Urine Nitrite Negative (Negative) Ur Leukocyte Esterase Small (1+) H (Negative) Urine RBC 3-5 H (0-2) /HPF Urine WBC 0-5 (0-5) /HPF Ur Squamous Epith Cells 11-20 (0-2) /HPF Urine Bacteria 4+ (None Seen) Hyaline Casts 0-2 (0-2) /LPF Independent Interpretation I performed an independent interpretation of an: Ultrasound Interpretation: I independently reviewed the ultrasound and agree with the radiologist's interpretation. Radiology Impression Discussion of test interpretation with radiology: I have reviewed the radiologist's reading. Radiologist Impression: FINDINGS: The uterus is anteverted and measures 7.4 x 3.6 cm cervix to fundus by anteroposterior diameter. No evidence of intrauterine gestational sac. The endometrium is thickened, heterogeneous and with internal vascularity measuring up to 1.5 cm in thickness. Ovaries are normal in morphology with preserved flow at the moment of this examination. The right ovary measures 3.6 x 1.6 x 1.6 cm and the left ovary measures 3 x 1.8 x 2 cm. There is a 1.4 cm corpus luteal cyst in the left ovary. No adnexal mass. No free fluid. US/US OB <= 14 weeks fetus IMPRESSION: No evidence of intrauterine gestation. ? Thickened heterogeneous vascular endometrium, suggesting retained products of conception seen in the appropriate clinical setting. Recommend OB consultation and correlation with quantitative hCG. External Record Review External record reviewed: Inpatient record, Office record and Outpatient record Discharge Plan Discharge Clinical Impression: Retained products of conception following , Elevated serum hCG in female, not Patient Disposition: Home, Self-Care Additional Instructions: You were evaluated in the ED today for elevated HCG levels following a medically induced . Your HCG level today was 11. You will need your HCG level rechecked in 48 hours. If your PCP is unable to order this, you can return to the ED. Return to the emergency department if you develop persistent pelvic cramping, abdominal pain, vaginal bleeding, abnormal vaginal discharge, fever 100.4F or greater, or any other concerning symptoms. Prescriptions: No Action fluticasone propion-salmeterol [Advair Diskus] 250-50 mcg/dose blister with device 1 inh inhalation BID albuterol 90 mcg/actuation aerosol inhalation levonorgestrel-ethinyl estrad 0.1-20 mg-mcg tablet 1 tab PO DAILY Qty: 84 3RF Referrals: Ty Glass MD [Physician] -
[2023-04-17 15:32] LABS: MANUAL DIFF FLAG NO
[2023-04-17 15:38] LABS: Basophils Absolute Auto 0.1 X10*3/uL (0.0-0.2); Basophils Percent Auto 0.8 % (0-2); Eosinophils Absolute Auto 0.4 X10*3/uL (0.0-0.4); Eosinophils Percent Auto 4.4 % (0-4); Hematocrit 43.5 % (37.0-47.0); Hemoglobin 14.4 g/dl (12.0-16.0); Imm Gran Abs Auto 0.02 X10*3/uL (0.00-0.03); Imm Gran Pct Auto 0.2 % (0.0-0.4); Lymphocytes Absolute Auto 3.3 X10*3/uL (1.2-4.9); Mean Corpuscular HGB Conc 33.1 g/dl (31.0-35.0); Mean Corpuscular Hemoglobin 29.8 pg (27.0-33.0); Mean Corpuscular Volume 90.1 fL (80.0-98.0); Mean Platelet Volume 8.8 fL (9.4-12.3); Monocytes Absolute Auto 0.7 X10*3/uL (0.1-1.2); Monocytes Percent Auto 7.6 % (2-11); Neutrophils Absolute Auto 4.5 x10*3/uL (2.0-8.3); Platelet Count 546 X10*3/uL (160-400); Red Blood Count 4.83 X10*6/uL (4.20-5.50); Red Cell Distribution Width 12.4 % (11.0-16.0)
[2023-04-17 15:58] LABS: HCG Quantitative 11 mIU/mL
[2023-04-17 16:02] LABS: Alanine Aminotransferase 13 U/L (0-31); Albumin Level 4.2 g/dL (3.5-5.0); Alkaline Phosphatase 75 U/L (39-117); Anion Gap 12 (12-20); Aspartate Amino Transferase 17 U/L (5-31); Bilirubin Direct 0.2 mg/dL (0.0-0.5); Bilirubin Total 0.5 mg/dL (0.0-1.0); Blood Urea Nitrogen 8 mg/dL (9-16); Calcium 9.9 mg/dL (8.4-10.2); Carbon Dioxide 25 mmol/L (22-29); Chloride 107 mmol/L (96-108); Creatinine Clr Calc Pharmacy 90.5; Estimated Glomerular Filt Rate > 60; Glucose Random 58 mg/dL (60-115); Potassium 4.3 mmol/L (3.3-5.1); Sodium 140 mmol/L (135-145); Total Protein 7.6 g/dL (6.5-8.0)
[2023-04-17 16:52] LABS: Appearance Urine Cloudy; Color Urine Yellow; Glucose Urine UA Negative (Negative); Leukocyte Esterase Urine Small (1+) (Negative); Nitrite Urine Negative (Negative); UMIC TRIGGER UACC YES; Urine Blood Negative (Negative); Urine Ketones Negative (Negative); Urine Protein Negative (Neg-Trace)
[2023-04-17 17:12] LABS: Bacteria Urine 4+ (None Seen); Hyaline Casts Urine 0-2 /LPF (0-2); UACC Culture Trigger YES; WBC Urine 0-5 /HPF (0-5)
[2023-04-17 17:46] LABS: Lipase 24 U/L (8-78)
[2023-04-17 18:20] VITALS: BP 145/84; PULSE 70; RESP 16; TEMP 36.9; O2SAT 99
--- NOTE | 2023-04-17 21:21 | P.CONOB_ITS ---
SKEINER - CN: HPI Data of Consult Consult date: 04/17/23 Primary Care Provider: Unknown Physician Consult Narrative Narrative: Late entry note I was consulted on Iva Pearson who is a 22 year old presenting to the emergency department after taking a home test which was positive. The patient had had a medically termination of at [facility] on 02/[facility], this was followed by a negative home urine test on 03/30.? After this time she had unprotected sex, followed by urine home test which was positive.? She went to her PCP where she had her HCG levels checked.? The first was 13, then yesterday was 10.? She reports spotting until one week ago, none since.? She denies any fevers, abdominal pain, abnormal vaginal discharge. In the emergency room H&H was within normal hCG was 11. cc:: CC: OB REPLACED BY [facility] Past Medical History Medical History Asthma Social History Social History Alcohol intake: current Alcohol intake frequency: holidays/special occasions only Patient Tobacco Use Status: Never used Tobacco Smoked in Last 30 Days: No Use of substances other than those prescribed or required for medical reasons: No Advance Directives: No Advance Directives Information Provided: No Gender identity: Female Meds Allergies Allergy/AdvReac Type Severity Reaction Status Date / Time peanut Allergy Severe Difficulty Verified 04/17/23 15:06 Breathing Peanut Butter Allergy Severe Difficulty Verified 04/17/23 15:06 Breathing Home Medications Medication Instructions Recorded Confirmed Last Taken Type albuterol 90 mcg/actuation aerosol mcg inhalation 11/17/21 11/17/21 Unknown History inhaler fluticasone 250 mcg-salmeterol 50 1 inh inhalation BID 11/17/21 11/17/21 Unknown History mcg/dose blistr powdr for inhalation (Advair Diskus) SKEINER Physical Exam Vitals Vital signs: Temp Pulse Resp BP Pulse Ox O2 Del Method 98.4 F 70 16 145/84 H 99 Room Air 04/17/23 18:20 04/17/23 18:20 04/17/23 18:20 04/17/23 18:20 04/17/23 18:20 04/17/23 18:20 BMI result Body Mass Index 27.2 Additional Comments: Reported by Lulu Roca, as the following: Soft to palpation and nontender, normoactive bowel sounds SKEINER - Results Labs 04/17/23 15:20 04/17/23 15:20 Labs: Short CBC 04/17/23 Range/Units 15:20 WBC 9.0 (4.8-10.8) X10*3/uL Hgb 14.4 (12.0-16.0) g/dl Hct 43.5 (37.0-47.0) % Plt Count 546 H (160-400) X10*3/uL BMP 04/17/23 15:20 Sodium 140 Potassium 4.3 D Chloride 107 Carbon Dioxide 25 BUN 8 L Creatinine 0.74 Calcium 9.9 D Liver Function 04/17/23 Range/Units 15:20 Total Bilirubin 0.5 (0.0-1.0) mg/dL Direct Bilirubin 0.2 (0.0-0.5) mg/dL AST 17 (5-31) U/L ALT 13 (0-31) U/L Alkaline Phosphatase 75 (39-117) U/L Albumin 4.2 (3.5-5.0) g/dL Urine 04/17/23 Range/Units 16:45 Urine Color Yellow Urine Appearance Cloudy Urine pH 7.0 (5.0-9.0) Ur Specific [place] 1.020 (1.005-1.025) Urine Protein Negative (Neg-Trace) mg/dL Urine Glucose (UA) Negative (Negative) mg/dL Imaging US - abdomen: Radiologist's impression: ITS Impressions Ultrasound 04/17/23 16:35 IMPRESSION: No evidence of intrauterine gestation. Thickened heterogeneous vascular endometrium, suggesting retained products of conception seen in the appropriate clinical setting. Recommend OB consultation and correlation with quantitative hCG. Assessment and Plan (1) Elevated serum hCG: Status: Acute Differential diagnosis includes hCG trending down from previous medical termination, new , ectopic , retained products of conception or others, Recommended the following: HCG to be repeated in 48 hours, signs and symptoms of spontaneous or incomplete and ectopic to be given to the patient, instructions to be given to patient to come back to emergency room in case of abdominal pain, fever, vaginal bleeding, nausea or vomiting, otherwise follow-up in the office in 48 hours with hCG quantitative. I spent a total of 20 minutes reviewing the chart, communicating the to emergency room provider and documenting in the medical record Time Spent With Patient Time: Total time managing care of this patient today ____ minutes.
== END 2023-04-17 18:56 | disposition home or self-care (01) ==
PROVIDERS: Physician Assistant; Emergency Provider Emergency Medicine
DX: O03.4 Incomplete spontaneous abortion without complication (principal); Z79.899 Other long term (current) drug therapy
CPT/HCPCS: 36415; 76801; 80048; 80076; 81001; 83690; 84702; 85025; 87086; 99284

== ENCOUNTER 2023-04-21 09:45 | Outpatient (REF) | payer OTHER, SELFPAY ==
[2023-04-21 11:31] LABS: HCG Quantitative 6 mIU/mL
== END 2023-04-21 09:46 | disposition home or self-care (01) ==
LOC: HO.LAB 09:45
PROVIDERS: Visit Provider Obstetrics & Gynecology
DX: R79.89 Other specified abnormal findings of blood chemistry (principal)
CPT/HCPCS: 36415; 84702

== ENCOUNTER 2023-04-24 14:06 | Outpatient (REF) | payer OTHER, SELFPAY ==
[2023-04-24 16:11] LABS: HCG Quantitative 5 mIU/mL
== END 2023-04-24 14:07 | disposition home or self-care (01) ==
LOC: HO.LAB 14:06
PROVIDERS: Visit Provider Obstetrics & Gynecology
DX: R79.89 Other specified abnormal findings of blood chemistry (principal)
CPT/HCPCS: 36415; 84702; 99212

== ENCOUNTER 2023-07-26 00:27 | Emergency (ER) | payer OTHER, SELFPAY ==
[2023-07-26 00:31] VITALS: BP 134/86; PULSE 69; RESP 18; TEMP 36.7; O2SAT 98; BMI 26.1
--- NOTE | 2023-07-26 00:46 | PC.NURSE ---
Pt noted to ambulate to and from triage with even and steady gait. Her speech is clear and she is conversing in full/complete sentences. hr leader encouraged pt to notify staff is any new and/or worsening symptoms arise. RN attempted to place lab orders for the patient however she declined at this time stating I'm afraid of fainting , RN provided education to the patient regarding vasovagal reactions and how the phleb area is set up; pt reports that she would feel more comfortable having blood work drawn once she is in a bed. regional extension service specialist notified.
== END 2023-07-26 02:29 | disposition left against medical advice (07) ==
PROVIDERS: Emergency Provider Emergency Medicine
DX: R51.9 Headache, unspecified (principal)
CPT/HCPCS: 99281